=== PATIENT | male | born 1945 | race Caucasian/White ===

== ENCOUNTER 2018-10-17 10:14 | Emergency (ER) | payer OTHER ==
--- OUTSIDE RECORDS SUMMARY | 2018-10-17 10:17 | XMS REPORT ---
:1945 Author Organization e[employer]Works Care Team Providers Name Role Phone Castillo, Na Provider Role Unavailable Allergies, Adverse Reactions, Alerts Substance Reaction Event Type N.K.D.A. Info Not Available Non Drug Allergy Problems Problem Type Condition Code Onset Dates Condition Status Problem Erectile dysfunction F52.21 Active Problem Fatty liver K76.0 Active Problem Adult general medical exam Z00.00 Active Problem Influenza vaccine administered Z23 Active Problem Screening for prostate cancer Z12.5 Active Problem Allergic rhinitis J30.9 Active Problem GERD (gastroesophageal reflux K21.9 Active disease) Problem Mixed hyperlipidemia E78.2 Active Problem Hyperlipidemia E78.5 Active Assessment Mixed hyperlipidemia E78.2 Active Assessment Screening for prostate cancer Z12.5 Active Assessment Influenza vaccine administered Z23 Active Assessment Allergic rhinitis J30.9 Active Assessment Adult general medical exam Z00.00 Active Medications Medication Code Code Instructions Start End Status Dosage System Date Date Flonase [facility] 13265752792 50 MCG/ACT Active 2 sprays Allergy Relief Nasally Once a to each day nostril Singulair [facility] 38333786565 10 MG Orally Active 1 tablet Once a day in the evening Flonase [facility] 12736061031 50 MCG/ACT Active 1 spray in Nasally Once a each day nostril Albuterol [facility] 27414474744 108 (90 Base) Active 2 puffs as Sulfate HFA MCG/ACT needed Inhalation every 6 hrs Aspir-81 [facility] 76629795564 81 MG Orally Active 1 tablet Once a day Results No Known Results Immunizations Vaccine Administration Date FluAD Aug 18, 2018 Summary Purpose eClinicalWorks Submission
--- OUTSIDE RECORDS SUMMARY | 2018-10-17 10:17 | XMS REPORT ---
:1945 Author Organization e[employer]Works Care Team Providers Name Role Phone Castillo, Na Provider Role Unavailable Allergies, Adverse Reactions, Alerts Substance Reaction Event Type N.K.D.A. Info Not Available Non Drug Allergy Problems Problem Type Condition Code Onset Dates Condition Status Assessment Fatty liver K76.0 Active Assessment Mixed hyperlipidemia E78.2 Active Problem Allergic rhinitis J30.9 Active Problem GERD (gastroesophageal reflux K21.9 Active disease) Problem Hyperlipidemia E78.5 Active Problem Mixed hyperlipidemia E78.2 Active Assessment Allergic rhinitis J30.9 Active Problem Erectile dysfunction F52.21 Active Problem Fatty liver K76.0 Active Medications Medication Code Code Instructions Start End Status Dosage System Date Date Singulair [facility] 48496560361 10 MG Orally Active 1 tablet Once a day in the evening Flonase [facility] 72319903931 50 MCG/ACT Active 1 spray in Nasally Once a each day nostril Albuterol [facility] 16307156730 108 (90 Base) Active 2 puffs as Sulfate HFA MCG/ACT needed Inhalation every 6 hrs Aspir-81 [facility] 36982982868 81 MG Orally Active 1 tablet Once a day Results No Known Results Summary Purpose eClinicalWorks Submission
--- OUTSIDE RECORDS SUMMARY | 2018-10-17 10:17 | XMS REPORT ---
:1945 Author Organization e[employer]Works Care Team Providers Name Role Phone Castillo, Na Provider Role Unavailable Allergies No Known Allergies Problems Problem Type Condition Code Onset Dates Condition Status Problem Allergic rhinitis J30.9 Active Problem GERD (gastroesophageal reflux K21.9 Active disease) Problem Hyperlipidemia E78.5 Active Problem Mixed hyperlipidemia E78.2 Active Problem Erectile dysfunction F52.21 Active Problem Fatty liver K76.0 Active Medications Medication Code Code Instructions Start End Status Dosage System Date Date Flonase [facility] 43437882044 50 MCG/ACT March 06, Active 2 sprays Allergy Relief Nasally Once a 2018 to each day nostril Results No Known Results Summary Purpose eClinicalWorks Submission
[2018-10-17] MEDS ORDERED: AMOX/K CLAV 875 MG TAB ONE (11:04)
--- NOTE | 2018-10-17 11:35 | RAD REPORT ---
EXAM DESCRIPTION: RAD - Hand Left 3 View - 10/17/2018 11:19 am CLINICAL HISTORY: Hand pain, dog bite COMPARISON: None. FINDINGS: No fracture, dislocation or periosteal reaction noted. No acute bone or joint finding seen . It is uncertain from the history whether the dog bite was to the thumb or index finger. No air in t he soft tissues. There are 2 punctate densities in the soft tissues near the first proximal phalanx. IMPRESSION: No acute bone or joint finding. Two punctate less than 1 mm soft tissue density seen adjacent to the first proximal phalanx. It is un known if the dog bite is in this region.
--- NOTE | 2018-10-17 11:50 | EDPHYS ---
Physician Documentation [facility] Name: Susan Molina Age: 73 yrs Sex: Male : 1945 Arrival Date: 10/17/2018 Time: 10:18 Bed 16 Private MD: Jeannette Castillo ED Physician Armando Guillaume HPI: 10/17 10:51 This 73 yrs old Male presents to ER via Ambulatory with complaints of Dog jmm Bite. 10:51 The patient was bitten on the dorsal aspect of proximal phalanx of left index finger. jmm Onset: The symptoms/episode began/occurred acutely, just prior to arrival, today. Animal information: Animal's vaccinations are up to date. Secondary to the bite the patient reports a laceration. Associated signs and symptoms: Pertinent negatives: motor deficit, numbness distal to wound. This is a 73 year old male with no chronic medical conditions that presents to the ED with a laceration to his proximal left index finger. Patient states he grabbed a stick to play with his dog and was bitten. Dog is UTD on immunizations. Patient denies other injury. Historical: - Allergies: 10:27 No Known Allergies; jl7 - Home Meds: 10:27 vitamin E Oral [Active]; Flonase Nasal [Active]; Claritin Oral [Active]; jl7 - PMHx: 10:27 None; jl7 - PSHx: 10:27 None; jl7 - Immunization history:: Adult Immunizations up to date, Last tetanus immunization: up to date. - Social history:: Smoking status: Patient/guardian denies using tobacco. - Ebola Screening: : No symptoms or risks identified at this time. ROS: 10:51 Constitutional: Negative for fever, chills, and weight loss, Eyes: Negative for injury, jmm pain, redness, and discharge, Cardiovascular: Negative for chest pain, palpitations, and edema, Respiratory: Negative for shortness of breath, cough, wheezing, and pleuritic chest pain. 10:51 Skin: Positive for laceration(s). 10:51 All other systems are negative. Exam: 10:51 Constitutional: This is a well developed, well nourished patient who is awake, alert, jmm and in no acute distress. Head/Face: atraumatic. Eyes: EOMI, no conjunctival erythema appreciated ENT: Moist Mucus Membranes Neck: Trachea midline, Supple Chest/axilla: Normal chest wall appearance and motion. Cardiovascular: Regular rate and rhythm. No edema appreciated Respiratory: Normal respirations, no respiratory distress appreciated Abdomen/GI: Non distended, soft Back: Normal ROM 10:51 Musculoskeletal/extremity: FROM appreciatd to the left index finger, full strength against resistance, tendon is not visualed, < 2 sec dist cap refill, NVI. 10:51 Skin: laceration noted to the proximal dorsum of the left index finger. 10:51 Neuro: Orientation: is normal, Mentation: is normal, Memory: is normal. 10:51 Psych: Behavior/mood is pleasant, cooperative. Vital Signs: 10:27 BP 149 / 88; Pulse 85; Resp 18 S; Temp 98.4(O); Pulse Ox 98% on R/A; Weight 102.06 kg jl7 (R); Height 5 ft. 11 in. (180.34 cm) (R); Pain 0/10; 11:20 BP 139 / 84; Pulse 87; Resp 19; Pulse Ox 100% on R/A; rb1 10:27 Body Mass Index 31.38 (102.06 kg, 180.34 cm) jl7 MDM: 10:51 Patient medically screened. [facility] 11:48 Data reviewed: vital signs, nurses notes. Counseling: I had a detailed discussion with [facility] the patient and/or guardian regarding: the historical points, exam findings, and any diagnostic results supporting the discharge/admit diagnosis, radiology results, the need for outpatient follow up, to return to the emergency department if symptoms worsen or persist or if there are any questions or concerns that arise at home. 11:48 Data reviewed: radiologic studies, plain films. [facility] 11:48 ED course: Left hand is NVI, patient administered abx in the ED. Patient advised to [facility] follow with hand. Given infection return precautions. . 10/17 10:51 Order name: Hand Left 3 View XRAY; Complete Time: 11:37 [facility] 10/17 11:32 Order name: Wound Care; Complete Time: 12:28 [facility] Administered Medications: 10:59 Drug: Augmentin 875 mg Route: PO; rb1 11:30 Follow up: Response: No adverse reaction rb1 Disposition: 18:30 Co-signature as Attending Physician, Armando Guillaume MD. rn Disposition: 11/27/18 11:49 Discharged to Home. Impression: Dog Bite, Finger laceration. - Condition is Stable. - Discharge Instructions: Nonsutured Laceration Care, Animal Bite. - Prescriptions for Augmentin 875- 125 mg Oral Tablet - take 1 tablet by ORAL route every 12 hours for 10 days; 20 tablet. - Medication Reconciliation Form, Thank You Letter, Antibiotic Education, Prescription Opioid Use form. - Follow up: Zach Cook MD; When: 2 - 3 days; Reason: Recheck today's complaints, Continuance of care, Re-evaluation by your physician. Signatures: Dispatcher [employer] EDMS Juarez Kidd PA PA jmm Nieto, Roman, MD MD rn Jaymie Kay RN RN rb1 Wilmar Hernandez RN RN jl7 Corrections: (The following items were deleted from the chart) 12:25 11:49 10/17/2018 11:49 Discharged to Home. Impression: Dog Bite; Finger laceration. rb1 Condition is Stable. Forms are Medication Reconciliation Form, Thank You Letter, Antibiotic Education, Prescription Opioid Use. Follow up: Zach Cook; When: 2 - 3 days; Reason: Recheck today's complaints, Continuance of care, Re-evaluation by your physician. leonides
--- NOTE | 2018-10-17 11:50 | ER ---
Nurse's Notes [facility] Name: Susan Molina Age: 73 yrs Sex: Male : 1945 Arrival Date: 10/17/2018 Time: 10:18 Bed 16 Private MD: Jeannette Castillo Diagnosis: Dog Bite;Finger laceration Presentation: 10/17 10:23 Presenting complaint: Patient states: "I was playing fetch with my dog and the dog was jl7 faster than me when trying to throw the stick." Denies pain, dog is up-to-date on vaccines, pt reports "I just want to make sure this doesn't require anything more than a Band-Aid." Bite noted to left index finger. Transition of care: patient was not received from another setting of care. Onset of symptoms was October 17, 2018 at 09:30. Risk Assessment: Do you want to hurt yourself or someone else? Patient reports no desire to harm self or others. Initial Sepsis Screen: Does the patient meet any 2 criteria? No. Patient's initial sepsis screen is negative. Does the patient have a suspected source of infection? No. Patient's initial sepsis screen is negative. Care prior to arrival: None. 10:23 Method Of Arrival: Ambulatory [facility] 10:23 Acuity: ZEN 4 jl7 Triage Assessment: 10:27 Bite description: bite sustained to dorsal aspect of proximal phalanx of left index jl7 finger is superficial, from animal, was sustained 30-60 minutes ago. by a dog, animal information: Appearance: appeared well, is superficial, vaccination(s) is current, was sustained 30-60 minutes ago. Animal control has not been notified. General: Appears in no apparent distress. uncomfortable, Behavior is calm, cooperative, appropriate for age. Pain: Denies pain. Neuro: Level of Consciousness is awake, alert, obeys commands, Oriented to person, place, time, situation. Cardiovascular: Patient's skin is warm and dry. Respiratory: Airway is patent Respiratory effort is even, unlabored, Respiratory pattern is regular, symmetrical. Derm: Skin is pink, warm \\T\\ dry. Historical: - Allergies: 10:27 No Known Allergies; jl7 - Home Meds: 10:27 vitamin E Oral [Active]; Flonase Nasal [Active]; Claritin Oral [Active]; jl7 - PMHx: 10:27 None; jl7 - PSHx: 10:27 None; jl7 - Immunization history:: Adult Immunizations up to date, Last tetanus immunization: up to date. - Social history:: Smoking status: Patient/guardian denies using tobacco. - Ebola Screening: : No symptoms or risks identified at this time. Screenin:23 Abuse screen: Denies threats or abuse. Nutritional screening: No deficits noted. rb1 Tuberculosis screening: No symptoms or risk factors identified. Fall Risk None identified. Assessment: 10:23 General: Appears in no apparent distress. comfortable, Behavior is calm, cooperative. rb1 Pain: Denies pain. Neuro: Level of Consciousness is awake, alert, obeys commands, Oriented to person, place, time, situation. Cardiovascular: Capillary refill < 3 seconds is brisk in bilateral fingers. Respiratory: Airway is patent Respiratory effort is even, unlabored, Respiratory pattern is regular, symmetrical. GI: No signs and/or symptoms were reported involving the gastrointestinal system. : No signs and/or symptoms were reported regarding the genitourinary system. Derm: Skin puncture hole noted to the left index finger, pt. reports he was playing fetch with his black lab and the dog was faster than him when he was trying to filler picker the stick. Skin is dry, Skin is normal, Skin temperature is warm Denies pain. Musculoskeletal: Range of motion: intact in all extremities. 11:20 Reassessment: Patient appears in no apparent distress at this time. No changes from rb1 previously documented assessment. 11:45 Reassessment: Performed wound care, pt. tolerated well. rb1 Vital Signs: 10:27 BP 149 / 88; Pulse 85; Resp 18 S; Temp 98.4(O); Pulse Ox 98% on R/A; Weight 102.06 kg jl7 (R); Height 5 ft. 11 in. (180.34 cm) (R); Pain 0/10; 11:20 BP 139 / 84; Pulse 87; Resp 19; Pulse Ox 100% on R/A; rb1 10:27 Body Mass Index 31.38 (102.06 kg, 180.34 cm) jl7 ED Course: 10:18 Patient arrived in ED. sb2 10:18 Jeannette Castillo MD is Private Physician. sb2 10:23 Juarez Kidd PA is PHCP. leonides 10:23 Armando Guillaume MD is Attending Physician. m 10:23 Patient has correct armband on for positive identification. Bed in low position. Call rb1 light in reach. Side rails up X 1. Pulse ox on. NIBP on. 10:26 Triage completed. jl7 10:27 Jaymie Kay, RN is Primary Nurse. rb1 10:27 Arm band placed on right wrist. jl7 11:18 X-ray completed. Portable x-ray completed in exam room. Patient tolerated procedure jb2 well. 11:20 Hand Left 3 View XRAY In Process Unspecified. EDMS 11:48 Zach Cook MD is Referral Physician. [facility] 12:05 No provider procedures requiring assistance completed. Patient did not have IV access rb1 during this emergency room visit. Administered Medications: 10:59 Drug: Augmentin 875 mg Route: PO; rb1 11:30 Follow up: Response: No adverse reaction rb1 Outcome: 11:49 Discharge ordered by MD. jm 12:05 Patient left the ED. rb1 12:05 Discharged to home ambulatory. rb1 12:05 Condition: stable 12:05 Discharge instructions given to patient, Instructed on discharge instructions, follow up and referral plans. medication usage, Demonstrated understanding of instructions, follow-up care, medications, Prescriptions given X 1. Signatures: Dispatcher [employer] EDIN Juarez Kidd PA PA [facility] Benny Bansal jb2 Jaymie Kay, RN RN rb1 Wilmar Hernandez RN RN jl7 Mariela Vásquez sb2 Corrections: (The following items were deleted from the chart) 12: 12:25 Patient left the ED. rb1 rb1
== END 2018-10-17 12:25 | disposition home or self-care (01) ==
LOC: ER 10:14
DX: S61.211A Laceration without foreign body of left index finger without damage to nail, initial encounter (principal); W54.0XXA Bitten by dog, initial encounter; Y93.89 Activity, other specified; Y92.9 Unspecified place or not applicable
CPT/HCPCS: 99284